=== PATIENT | male | born 1930 | race Caucasian/White ===

== ENCOUNTER 2016-12-12 09:26 | Emergency (ER) | payer OTHER ==
--- NOTE | ~2016-12-12 | CT52 ---
[facility] A Service [facility] RADIOLOGY TEXT RESULTS PATIENT: JULIANNE SULLIVAN LOCATION: SED : 30 UNIT #: [id number] AGE: [address]: Dash Bonilla DO SEX: M ORDER DR: [id number] [place] [id number] E MR#: [id number] Acc #: [id number] NAME: JULIANNE SULLIVAN : 1930 SEX: M STUDY DATE/TIME: 12/12/2016 10:56 UNIT: SED ROOM: STUDY DESCRIPTION: CT Cervical Spine Wo Cont Ordering Physician: [facility] MEDICAL IMAGING REPORT This report is preliminary unless electronic signature is present. EXAM CT cervical spine without contrast INDICATIONS Neck pain after fall this morning. TECHNIQUE Unenhanced CT cervical spine. This CT exam was performed with one or more of the following radiation dose reduction techniques: automatic exposure control, adjustment of mA and/or kV according to patient size, and iterative reconstruction. FINDINGS The cervical bodies have normal height. There is multilevel degenerative change. The craniocervical junction and the dens are intact. Multilevel facet arthrosis. No fracture. Varying degrees of central canal narrowing. IMPRESSION 1. No acute findings. 2. Multilevel degenerative change. Dictated by... Dex Granados M.D. THIS IS AN ELECTRONICALLY VERIFIED REPORT Dex Granados M.D. at 12/13/2016 9:43 AM EED/pcl [facility] A Service [facility] RADIOLOGY TEXT RESULTS PATIENT: JULIANNE SULLIVAN LOCATION: SED : 30 UNIT #: [id number] AGE: [address]: Dash Bonilla DO SEX: M ORDER DR: TD: 12/12/2016 13:36 JOB #: [id number] MEDICAL IMAGING REPORT Page 1 of 1
--- NOTE | ~2016-12-12 | CR151 ---
[facility]. [facility] A Service of [facility] RADIOLOGY TEXT RESULTS PATIENT: JULIANNE SULLIVAN LOCATION: SED : 30 UNIT #: [id number] AGE: [address]: Dash Bonilla DO SEX: M ORDER DR: [id number] [place] [id number] E MR#: [id number] Acc #: [id number] NAME: JULIANNE SULLIVAN : 1930 SEX: M STUDY DATE/TIME: 12/12/2016 11:02 UNIT: SED ROOM: STUDY DESCRIPTION: CR Hip Min 2 Views Rt Attending Physician: Dash Bonilla Ordering Physician: Dash Bonilla Primary Care Physician: Karolina Haddad MEDICAL IMAGING REPORT This report is preliminary unless electronic signature is present. EXAM Right hip 2 views INDICATIONS Fall and right hip pain and difficulty walking. Symptoms today. No comparisons. FINDINGS Osteopenia. Mild degenerative changes of both hips, left greater than right. No evidence of fracture or dislocation. Degenerative changes lower lumbar spine. IMPRESSION No fracture or dislocation. Dictated by... Charli Jefferson M.D. THIS IS AN ELECTRONICALLY VERIFIED REPORT Charli Jefferson M.D. at 12/13/2016 4:34 PM Vasile TD: 12/12/2016 13:29 JOB #: [id number] MEDICAL IMAGING REPORT Page 1 of 1
--- NOTE | ~2016-12-12 | CT71 ---
[facility] A Service of [facility] RADIOLOGY TEXT RESULTS PATIENT: JULIANNE SULILVAN LOCATION: SED : 30 UNIT #: [id number] AGE: [address]: Dash Bonilla DO SEX: M ORDER DR: [id number] [place] [id number] E MR#: [id number] Acc #: [id number] NAME: JULIANNE SULLIVAN : 1930 SEX: M STUDY DATE/TIME: 12/12/2016 10:41 UNIT: SED ROOM: STUDY DESCRIPTION: CT Head Wo Contrast Attending Physician: Dash Bonilla Ordering Physician: Dash Bonilla Primary Care Physician: Karolina Haddad MEDICAL IMAGING REPORT This report is preliminary unless electronic signature is present. EXAM CT head without contrast INDICATIONS Head pain after a fall and head injury this morning. PROCEDURE Unenhanced CT of the head. This CT exam was performed with one or more of the following radiation dose reduction techniques: automatic exposure control, adjustment of mA and/or kV according to patient size, and iterative reconstruction. COMPARISON None. FINDINGS Generalized volume loss. No hemorrhage, mass effect, extraaxial collection or hydrocephalus. No definitive evidence for acute, early subacute large territory infarct. No calvarial fracture. Paranasal sinuses and mastoid air cells are clear. IMPRESSION 1. No acute intracranial findings. 2. Generalized volume loss. Dictated by... Dex Granados M.D. THIS IS AN ELECTRONICALLY VERIFIED REPORT Dex Granados M.D. at 12/13/2016 9:43 AM EED/sai [facility] A Service of [facility] RADIOLOGY TEXT RESULTS PATIENT: JULIANNE SULLIVAN LOCATION: SED : 30 UNIT #: [id number] AGE: [address]: Dash Bonilla DO SEX: M ORDER DR: TD: 12/12/2016 13:23 JOB #: [id number] MEDICAL IMAGING REPORT Page 1 of 1
--- NOTE | ~2016-12-12 | CR71 ---
[facility] A Service of [facility] RADIOLOGY TEXT RESULTS PATIENT: JULIANNE SULLIVAN LOCATION: SED : 30 UNIT #: [id number] AGE: [address]: Dash Bonilla DO SEX: M ORDER DR: [id number] [place] [id number] E MR#: [id number] Acc #: [id number] NAME: JULIANNE SULLIVAN : 1930 SEX: M STUDY DATE/TIME: 12/12/2016 11:02 UNIT: SED ROOM: STUDY DESCRIPTION: CR Chest Single View Ordering Physician: [facility] MEDICAL IMAGING REPORT This report is preliminary unless electronic signature is present. EXAM Portable chest HISTORY Fall this morning with injury. TECHNIQUE Frontal view chest. COMPARISON None. FINDINGS Moderate cardiomegaly. Prominence of the mediastinal contour is nonspecific. Lungs are otherwise clear with no pleural fluid or pneumothorax. IMPRESSION Cardiomegaly. Prominence of the mediastinal contour, could be normal for the patient but there are no previous studies for comparison. May represent prominent vascular structures. Dictated by... Dex Granados M.D. THIS IS AN ELECTRONICALLY VERIFIED REPORT Dex Granados M.D. at 12/13/2016 9:43 AM EED/pcl [facility] A Service of [facility] RADIOLOGY TEXT RESULTS PATIENT: JULIANNE SULLIVAN LOCATION: SED : 30 UNIT #: [id number] AGE: [address]: Dash Bonilla DO SEX: M ORDER DR: TD: 12/12/2016 13:24 JOB #: [id number] MEDICAL IMAGING REPORT Page 1 of 1
--- NOTE | ~2016-12-12 | EKG ---
PATIENT: JULIANNE SULLIVAN UNIT #: [id number] Ventricular Rate: 41 BPM Atrial Rate: 38 BPM P-R Interval: 328 ms QRS Duration: 84 ms Q-T Interval: 518 ms QTC Calculation(Bezet): 427 ms P [place]: 64 degrees Calculated R [place]: 20 degrees Calculated T [place]: 63 degrees Diagnosis Line: Sinus rhythm with 1st degree A-V block Baseline Diagnosis Line: wander Diagnosis Line: Abnormal ECG Diagnosis Line: Diagnosis Line: Confirmed by GERARDO BAHENA MD ([id number]) on 12/16/2016 Diagnosis Line: 11:57:33 AM INTERPRETING MD: JOSEF LERMA
[~2016-12-12 09:26] MED LIST: CAPOZIDE; DEPAKOTE ER; DIAZEPAM; ESTRATEST H S; FLOMAX0.4 M1; HYDROCODON-ACE1 EA11; LASIX; LEVEMIR100 UNITS/; NEURONTIN; POTASSIUM99 M1; PROTONIX; SEROQUEL
[2016-12-12 10:06] LABS: BASOPHIL# 0.1 X10e3 (0-0.3); BASOPHIL% 0.9 % (0-2.5); EOSINOPHIL# 0.4 X10e3 (0-0.7); EOSINOPHIL% 5.3 % (0.0-7.0); HEMATOCRIT 38.4 % (38.0-50.0); HEMOGLOBIN 12.9 gm/dL (13.0-16.0); LYMPHOCYTE# 2.2 X10e3 (1.0-3.5); MEAN CORPUSCULAR HEMOGLOBIN 31.2 PG (28-34); MEAN CORPUSCULAR HGB CONC 33.6 g/dL (30-36); MEAN PLATELET VOLUME 8.2 FL (6.5-11.5); MONOCYTE# 0.9 X10e3 (0-1.0); MONOCYTE% 10.9 % (3.0-12.0); NEUTROPHIL# 4.3 X10e3 (1.5-7.1); NEUTROPHIL% 54.9 % (40-75); PLATELET COUNT 111 X10e3 (140-420); RED BLOOD COUNT 4.13 X10e (3.90-5.60); RED CELL DISTRIBUTION WIDTH 13.6 % (11.0-15.5); WHITE BLOOD COUNT 7.9 X10e3 (4.0-10.5)
[2016-12-12 10:09] LABS: DIFF IND NO
[2016-12-12 10:16] LABS: INR 1.1; PROTHROMBIN TIME (PATIENT) 12.5 SECONDS (9.5-12.4)
[2016-12-12 10:23] LABS: PARTIAL THROMBOPLASTIN TIME 31.7 SECONDS (25.6-38.1)
[2016-12-12 10:34] LABS: ALBUMIN SERUM 3.9 g/dL (3.5-5.0); ALKALINE PHOSPHATASE 85 U/L (32-92); AST (SGOT) 20 U/L (10-42); BILIRUBIN, DIRECT 0.1 mg/dL (0.0-0.2); BILIRUBIN,INDIRECT 0.2 mg/dL (0.0-0.9); BILIRUBIN,TOTAL 0.3 mg/dL (0.2-2.0); BLOOD UREA NITROGEN 43 mg/dL (9-23); CALCIUM SERUM 8.3 mg/dL (8.4-10.2); CARBON DIOXIDE 28 mmol/L (22-31); CHLORIDE 104 mmol/L (100-111); GLOM FILT RATE Estimated 29.4 mL/min (>60); POTASSIUM 3.7 mmol/L (3.5-5.1); PROTEIN TOTAL SERUM 5.7 g/dL (6.0-8.3); SODIUM 142 mmol/L (135-145)
[2016-12-12 10:36] LABS: ALT (SGPT) <5 U/L (10-40); GLUCOSE FASTING 39 mg/dL (70-110)
[2016-12-12 10:59] LABS: POC - CKMB 1.3 ng/mL (0.0-7.9)
[2016-12-12 11:00] LABS: POC - TROPONIN <0.05 ng/mL (<=0.05)
[2016-12-12 13:06] LABS: URINE SOURCE CLEAN CATCH
[2016-12-12 13:08] LABS: MICRO INDICATED? NO; URINE APPEARANCE CLEAR; URINE BILIRUBIN NEG (NEG); URINE BLOOD NEG (NEG); URINE COLOR YELLOW; URINE GLUCOSE NEG (NORM); URINE KETONE NEG (NEG); URINE LEUKOCYTE ESTERASE NEG (NEG); URINE NITRATE NEG (NEG); URINE PH 6.5 (5-8); URINE PROTEIN NEG (NEG); URINE UROBILINOGEN 0.2 MG/DL (NORM)
== END 2016-12-12 13:50 | disposition home or self-care (01) ==
LOC: SED 09:26
PROVIDERS: Emergency Medicine
DX: E11.65 Type 2 diabetes mellitus with hyperglycemia (principal); I10 Essential (primary) hypertension; F03.90 Unspecified dementia, unspecified severity, without behavioral disturbance, psychotic disturbance, mood disturbance, and anxiety
CPT/HCPCS: 70450; 71010; 72125; 73502; 80048; 80076; 81003; 82553; 82947; 84484; 85025; 85610; 85730; 93005; 96374; 96376; 99284

== ENCOUNTER 2017-01-10 11:14 | Emergency (ER) | payer OTHER ==
--- NOTE | ~2017-01-10 | CT71 ---
[facility]. [facility] A Service of [facility] RADIOLOGY TEXT RESULTS PATIENT: JULIANNE SULLIVAN LOCATION: SED : 30 UNIT #: [id number] AGE: [address]: Liang Hutchins MD SEX: M ORDER DR: [id number] [address] [id number] E MR#: [id number] Acc #: [id number] NAME: JULIANNE SULLIVAN : 1930 SEX: M STUDY DATE/TIME: 01/10/2017 12:32 UNIT: SED ROOM: STUDY DESCRIPTION: CT Head Wo Contrast Attending Physician: Liang Hutchins M.D. Ordering Physician: Liang Hutchins M.D. Primary Care Physician: Karolina Haddad MEDICAL IMAGING REPORT This report is preliminary unless electronic signature is present. EXAM Noncontrast CT head, 01/10/2017 HISTORY Weakness, lethargy and dizziness this morning. Symptoms began prior to arrival today. Additional history of dementia, hypertension, diabetes. COMPARISON Noncontrast CT head, 12/12/[address] exam was performed with one or more of the following radiation dose reduction techniques: automatic exposure control, adjustment of mA and/or kV according to patient size, and iterative reconstruction. FINDINGS No acute intracranial hemorrhage, mass lesion, mass effect or midline shift is seen. Periventricular and deep white matter hypodensities are present which are thought to represent changes of chronic microvascular disease. However, hall matter-white matter junction distinction appears preserved, without convincing CT evidence of acute or evolving infarct. There is moderately advanced generalized parenchymal atrophy with compensatory prominence of ventricles and extraaxial spaces, similar to prior. Mild ethmoid sinus mucosal thickening is present, and the mastoid air cells are clear. Calvaria is within normal limits. Intracranial carotid artery calcifications are present. IMPRESSION 1. No acute intracranial findings. 2. Moderately advanced generalized parenchymal atrophy. 3. Chronic microvascular disease changes. [facility] A Service [facility] RADIOLOGY TEXT RESULTS PATIENT: JULIANNE SULLIVAN [id number] UNIT #: [id number] AGE: [address]: Liang Hutchins MD SEX: M ORDER DR: Dictated by... Violet Orona M.D. THIS IS AN ELECTRONICALLY VERIFIED REPORT Violet Orona M.D. at 01/13/2017 8:30 AM GONZALO/brayan TD: 01/10/2017 14:02 JOB #: [id number] MEDICAL IMAGING REPORT Page 1 of 1
--- NOTE | ~2017-01-10 | EKG ---
PATIENT: JULIANNE SULLIVAN UNIT #: [id number] Ventricular Rate: 44 BPM Atrial Rate: 44 BPM P-R Interval: 316 ms QRS Duration: 78 ms Q-T Interval: 524 ms QTC Calculation(Bezet): 448 ms P [place]: 21 degrees Calculated R [place]: 4 degrees Calculated T [place]: 12 degrees Diagnosis Line: Marked sinus bradycardia with 1st degree A-V block Diagnosis Line: Abnormal ECG Diagnosis Line: When compared with ECG of 12-DEC-2016 09:46, Diagnosis Line: No significant change was found Diagnosis Line: Confirmed by MALCOLM IBARRA MD ([id number]) on Diagnosis Line: 01/12/2017 8:51:01 AM INTERPRETING MD: FRED LERMA
--- NOTE | ~2017-01-10 | CR72 ---
[facility] A Service [facility] RADIOLOGY TEXT RESULTS PATIENT: JULIANNE SULLIVAN LOCATION: SED : 30 UNIT #: [id number] AGE: [address]: Liang Hutchins MD SEX: M ORDER DR: [id number] [place] [id number] E MR#: [id number] Acc #: [id number] NAME: JULIANNE SULLIVAN : 1930 SEX: M STUDY DATE/TIME: 01/10/2017 12:23 UNIT: SED ROOM: STUDY DESCRIPTION: CR Chest Single View Portable Attending Physician: Liang Hutchins M.D. Ordering Physician: Liang Hutchins M.D. Primary Care Physician: Karolina Haddad MEDICAL IMAGING REPORT This report is preliminary unless electronic signature is present. EXAM Portable AP view of the chest COMPARISON December 12, 2016 INDICATIONS 86-year-old male with lethargy and weakness since this morning. History of hypertension. FINDINGS No evidence of pneumothorax or significant pleural effusion. Minimal band-like opacities in the medial right lung base most consistent with atelectasis and/or bronchovascular crowding. No evidence of pneumonia. There is questionable mild cardiomegaly, not well evaluated with portable technique. No evidence of pulmonary edema. IMPRESSION Questionable mild cardiomegaly, not well evaluated with portable technique. No acute radiographic abnormality of the chest. Dictated by... Oumar Alvarado M.D. THIS IS AN ELECTRONICALLY VERIFIED REPORT Oumar Alvarado M.D. at 01/11/2017 7:36 AM JEN/darrick TD: 01/10/2017 13:52 JOB #: [id number] [facility] A Service [facility] RADIOLOGY TEXT RESULTS PATIENT: JULIANNE SULLIVAN LOCATION: SED : 30 UNIT #: [id number] AGE: [address]: Liang Hutchins MD SEX: M ORDER DR: MEDICAL IMAGING REPORT Page 1 of 1
[2017-01-10 12:15] LABS: BASOPHIL# 0.1 X10e3 (0-0.3); BASOPHIL% 1.2 % (0-2.5); EOSINOPHIL# 0.2 X10e3 (0-0.7); EOSINOPHIL% 5.2 % (0.0-7.0); HEMATOCRIT 38.1 % (38.0-50.0); HEMOGLOBIN 12.8 gm/dL (13.0-16.0); LYMPHOCYTE# 1.1 X10e3 (1.0-3.5); MEAN CELL VOLUME 92.5 FL (83-96); MEAN CORPUSCULAR HEMOGLOBIN 31.2 PG (28-34); MEAN CORPUSCULAR HGB CONC 33.7 g/dL (30-36); MEAN PLATELET VOLUME 8.6 FL (6.5-11.5); MONOCYTE# 0.4 X10e3 (0-1.0); MONOCYTE% 9.6 % (3.0-12.0); NEUTROPHIL# 2.5 X10e3 (1.5-7.1); PLATELET COUNT 100 X10e3 (140-420); RED BLOOD COUNT 4.12 X10e (3.90-5.60); RED CELL DISTRIBUTION WIDTH 13.5 % (11.0-15.5); WHITE BLOOD COUNT 4.4 X10e3 (4.0-10.5)
[2017-01-10 12:26] LABS: INR 1.1
[2017-01-10 12:33] LABS: PARTIAL THROMBOPLASTIN TIME 26.7 SECONDS (25.6-38.1)
[2017-01-10 12:43] LABS: DIFF IND NO
[2017-01-10 13:00] LABS: ALBUMIN SERUM 4.1 g/dL (3.5-5.0); ALKALINE PHOSPHATASE 78 U/L (32-92); ALT (SGPT) <5 U/L (10-40); AST (SGOT) 22 U/L (10-42); BILIRUBIN, DIRECT 0.1 mg/dL (0.0-0.2); BILIRUBIN,INDIRECT 0.5 mg/dL (0.0-0.9); BILIRUBIN,TOTAL 0.6 mg/dL (0.2-2.0); BLOOD UREA NITROGEN 46 mg/dL (9-23); BUN/CREATININE RATIO 27.05; CARBON DIOXIDE 28 mmol/L (22-31); CHLORIDE 100 mmol/L (100-111); CREATININE SERUM 1.7 mg/dL (0.6-1.4); GLOM FILT RATE Estimated 35.7 mL/min (>60); GLUCOSE FASTING 145 mg/dL (70-110); POTASSIUM 4.1 mmol/L (3.5-5.1); PROTEIN TOTAL SERUM 6.7 g/dL (6.0-8.3); SODIUM 136 mmol/L (135-145)
[2017-01-10 13:17] LABS: POC - CKMB <1.0 ng/mL (0.0-7.9)
[2017-01-10 13:18] LABS: POC - TROPONIN <0.05 ng/mL (<=0.05)
[2017-01-10 13:50] LABS: URINE SOURCE CLEAN CATCH
[2017-01-10 13:55] LABS: URINE APPEARANCE CLEAR; URINE BILIRUBIN NEG (NEG); URINE BLOOD NEG (NEG); URINE COLOR YELLOW; URINE GLUCOSE NEG (NORM); URINE KETONE NEG (NEG); URINE LEUKOCYTE ESTERASE NEG (NEG); URINE NITRATE NEG (NEG); URINE PH 5.5 (5-8); URINE PROTEIN NEG (NEG); URINE UROBILINOGEN 0.2 MG/DL (NORM)
[2017-01-10 13:57] LABS: MICRO INDICATED? NO
[2017-01-10 15:59] LABS: POC - CKMB <1.0 ng/mL (0.0-7.9); POC - TROPONIN <0.05 ng/mL (<=0.05)
== END 2017-01-10 17:09 ==
LOC: SED 11:14
PROVIDERS: Emergency Medicine
DX: R53.1 Weakness (principal); R00.1 Bradycardia, unspecified; I10 Essential (primary) hypertension; Z88.0 Allergy status to penicillin; E11.9 Type 2 diabetes mellitus without complications; F17.200 Nicotine dependence, unspecified, uncomplicated
CPT/HCPCS: 36415; 70450; 71010; 80048; 80076; 80164; 81003; 82553; 82947; 84484; 85025; 85610; 85730; 93005; 99285